=== PATIENT | female | born 1965 | race Caucasian/White ===

== ENCOUNTER 2017-04-25 11:57 | Emergency (ER) ==
[2017-04-25 12:16] VITALS: BP 140/94; TEMP 98.5; BMI 38.7
--- NOTE | 2017-04-25 12:26 | ED.PDOC ---
General ED Provider: Dr. SCOTT HOFF Chief Complaint: Extremity Pain/Injury Stated Complaint: stepped backward and missed step, fell down 3 stairs landing on her back and oustretched right hand. Right wrist painful since. No LOC. Time Seen by Physician: 12:23 Mode of Arrival: Walk-In Information Source: Patient Exam Limitations: No limitations Nursing and Triage Documentation Reviewed and Agree: Yes Musculoskeletal Complaint Exam - Hand/Wrist Complaint/Exam Location of Pain: Reports: Right, Wrist Mechanism of Injury: Reports: Trauma Onset/Duration: 1 hour Symptoms Are: Still present Onset of Pain: Reports: Immediate Initial Severity: Severe Current Severity: Moderate Location: Reports: Diffuse Character: Reports: Sharp (sharp pain with any attempt at ROM), Aching, Throbbing Alleviating: Reports: None Aggravating: Reports: Movement Review of Systems - Review Of Systems Constitutional: Reports: No symptoms Musculoskeletal: Reports: Joint pain Skin: Reports: No symptoms Neurological: Reports: No symptoms All Other Systems: Reviewed and Negative Past Medical History - Past Medical History Previously Healthy: Yes Endocrine: Reports: None Cardiovascular: Reports: None Respiratory: Reports: None Hematological: Reports: None Gastrointestinal: Reports: None Genitourinary: Reports: None Neuro/Psych: Reports: None Musculoskeletal: Reports: None Cancer: Reports: None Last Menstrual Period: NA - Surgical History General Surgical History: Reports: None - Family History Family History: Reports: Unknown - Social History Smoking Status: Never smoker Hx Substance Use: No Alcohol Screening: None Lives: Alone - Immunizations Tetanus Shot up to Date: Yes Influenza Vaccine within 12 Months: No Pneumococcal Vaccine up to Date: No Physical Exam - Physical Exam Appearance: Well-appearing, No pain distress, Well-nourished, Obese Ill-appearing: None Pain Distress: None Respiratory: Airway patent, Breath sounds clear, Breath sounds equal, Respirations nonlabored Cardiovascular: RRR, Pulses normal, No rub, No murmur Musculoskeletal: Normal strength, No edema, No calf tenderness, Limited ROM ( right wrist tender to palpation throughout and inc pain with any ROM, passive or active) Skin: Warm, Dry, Normal color Neurological: Sensation intact, Motor intact, Reflexes intact, Cranial nerves intact, Alert, Oriented Psychiatric: Affect appropriate, Mood appropriate Critical Care Note - Critical Care Note Total Time (mins): 0 Course - Course Orders, Labs, Meds: Orders Category Date Time Status Acetaminophen with Codeine [Tylenol #3 Tab] MEDS 04/25/17 13:00 Stat 1 tab PO ONCE STA WRIST, RIGHT 3 VIEWS Stat RADS 04/25/17 12:26 Ordered Medications Generic Name Dose Route Start Last Admin Trade Name Freq PRN Reason Stop Dose Admin Acetaminophen/Codeine Phosphate 1 tab 04/25/17 13:00 Tylenol #3 Tab PO 04/25/17 13:01 ONCE STA Vital Signs: Temp Pulse Resp BP Pulse Ox 04/25/17 12:03 98.5 F 68 20 140/94 H 98 Departure - Departure Time of Disposition: 13:01 Disposition: HOME SELF-CARE Discharge Problem: Nondisplaced fracture of left ulna styloid process, initial encounter for closed fracture, Distal radius fracture, right Discharge Problem: (Ruled Out): Displaced fracture of left ulna styloid process, initial encounter for closed fracture, Distal radial fracture Instructions: Wrist Fracture in Adults (ED) Condition: Good Pt referred to PMD for follow-up: No (follow up with orthopedic surgeon SHANTE) Prescriptions: Acetaminophen with Codeine [Tylenol #3 Tab] 1 tab PO Q4H PRN #20 tablet PRN Reason: PAIN Allergies/Adverse Reactions: Allergies No Known Allergies Allergy (Unverified 04/25/17 12:03) Home Medications: Ambulatory Orders Acetaminophen with Codeine [Tylenol #3 Tab] 1 tab PO Q4H PRN #20 tablet Disposition Discussed With: Patient
[2017-04-25] MEDS ORDERED: TYLENOL #3 TAB PO STA (13:00)
--- NOTE | 2017-04-25 13:35 | DI ---
EXAM: Three views of the right wrist HISTORY: Fall. COMPARISON: None FINDINGS: There is posteriorly angulated fracture of the distal radial metaphysis. No definitive fra cture extension into the radiocarpal joint space. There is a displaced ulnar styloid fracture. The c arpal bones are unremarkable. There is mild soft tissue swelling. IMPRESSION: 1. Posterior angulation of the distal right radial metaphysis fracture. 2. Displaced ulnar styloid fracture.
== END 2017-04-25 14:07 | disposition home or self-care (01) ==
LOC: ED 11:57
DX: S52.615A Nondisplaced fracture of left ulna styloid process, initial encounter for closed fracture (principal); S52.501A Unspecified fracture of the lower end of right radius, initial encounter for closed fracture; W10.9XXA Fall (on) (from) unspecified stairs and steps, initial encounter
CPT/HCPCS: 99283